=== PATIENT | female | born 1985 | race Caucasian/White ===

== ENCOUNTER → 2016-11-06 | Outpatient (CLI) | payer OTHER ==
[~2016-11-06] MED LIST: COLA100C5 PO; DIBU10OI TOP; MOTR200T44 PO; PRENTAB7 PO; TUMS500C PO; TYLE325T5 PO
== END ==
LOC: M LAB 10:03
PROVIDERS: ATTEND Nurse Practitioner Women's Health
DX: Z34.90 Encounter for supervision of normal pregnancy, unspecified, unspecified trimester (principal); Z36 Encounter for antenatal screening of mother; Z3A.00 Weeks of gestation of pregnancy not specified

== ENCOUNTER 2016-11-21 17:45 | Outpatient (CLI) | payer OTHER ==
[~2016-11-21] VITALS: Ht 165.1 cm; Wt 85.0 kg
[2016-11-21] MEDS ORDERED: PRENTAB7 PO (17:56)
[2016-11-21 18:07] VITALS: BP 145/80
[2016-11-21 18:34] LABS: MEAN CORPUSCULAR HEMOGLOBIN 31.4 pg (27.0-33.0); MEAN CORPUSCULAR HGB CONC 34.2 g/dl (32.0-36.5); MEAN CORPUSCULAR VOLUME 91.8 fl (80.0-96.0); RED CELL DISTRIBUTION WIDTH 13.1 % (11.5-14.5); WHITE BLOOD COUNT 11.6 K/mm3 (4.0-10.0)
--- NOTE | 2016-11-22 16:06 | HPE ---
DATE OF ADMISSION: 11/21/2016 This lady is a 31-year-old 3, para 2, LMP of 05/02/2016, estimated date of delivery (EDC) 02/06/2017 at 29 weeks gestation who fell 2 hours ago and called requesting guidance. She had no loss of fluid. No contractions. No loss of consciousness. No bleeding. Her labs are O+, HIV negative, hepatitis negative, RPR negative, rubella immune. Varicella immune. Pap normal. Urine negative. Gonorrhea and chlamydia negative. 1-hour glucose 108. CF declined. Quad screen declined. PHYSICAL EXAMINATION: On examination no acute distress. Symphysis fundus height is 30, vertex presenting, non irritable uterus. Category one strip. No vaginal loss or bleeding and no contractions. Her temperature is 97.9, pulse 109, respirations 18, blood pressure 145/80, hemoglobin 13.7, hematocrit 40.2 and platelets are 249. Betke-Kleihauer is pending and no urine was available. The rest of the examination unremarkable. She is normocephalic, atraumatic. Neck: Full range of motion. Pupils equal and reactive to light. No neck issues. Chest is clear bilaterally to bases. No wheezes or rhonchi. Distal pulses symmetric. No evidence of deep venous thrombosis (DVT), pulmonary embolism (PE) or superficial phlebitis. No CVA tenderness. Again, nontender uterus. Appropriate symphysis fundus height. No rashes, lesions or pruritus. No arthralgia, myalgia. No complaints of cough, wheezes, shortness of breath or dyspnea on exertion. No chest pain. No bleeding. Neuro complete. No incontinency or frequency. No nausea, vomiting, diarrhea, or constipation. No diabetic or cold issues. 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 SOCIAL HISTORY: She does not smoke, drink or abuse drugs and she has no domestic violence. SUMMARY: In summary we have a 29 weeker who fell on her abdomen with no consequences. Precautions were given and she was discharged undelivered to followup in the office at her interval appointment in November.
== END 2016-11-21 19:50 | disposition home or self-care (01) ==
LOC: M LDO 17:45
PROVIDERS: ATTEND Obstetrics & Gynecology
DX: O99.89 Other specified diseases and conditions complicating pregnancy, childbirth and the puerperium (principal); Z3A.29 29 weeks gestation of pregnancy; W19.XXXA Unspecified fall, initial encounter; X58.XXXA Exposure to other specified factors, initial encounter; Y93.9 Activity, unspecified; Y92.9 Unspecified place or not applicable; Y99.8 Other external cause status; M54.5 Low back pain; Z91.02 Food additives allergy status; Z91.018 Allergy to other foods

== ENCOUNTER 2017-02-03 10:41 | Inpatient (IN) | payer OTHER ==
[2017-02-03] VITALS (34 sets, daily range): BP systolic 112–153; BP diastolic 58–90
[~2017-02-03] VITALS: Ht 165.1 cm; Wt 95.4 kg
[~2017-02-03 10:41] MED LIST changes: -COLA100C5 PO; -DIBU10OI TOP; -MOTR200T44 PO; -TUMS500C PO; -TYLE325T5 PO
[2017-02-03] MEDS ORDERED: LACTATED RINGER'S 1000 ML IV STA (10:44)
[2017-02-03] MEDS ORDERED: TUMS500C PO (11:21)
[2017-02-03 11:50] LABS: MEAN CORPUSCULAR HEMOGLOBIN 30.6 pg (27.0-33.0); MEAN CORPUSCULAR HGB CONC 33.9 g/dl (32.0-36.5); MEAN CORPUSCULAR VOLUME 90.2 fl (80.0-96.0); RED CELL DISTRIBUTION WIDTH 14.3 % (11.5-14.5); WHITE BLOOD COUNT 17.9 10^3/uL (4.0-10.0)
[2017-02-03] MEDS: LR 1,000 ML IV SCH ×2 (15:50→18:44)
[2017-02-03] MEDS ORDERED: FENTANYL 2MCG/ML ROPIVACAINE 0.2% IN 0.9% NACL 200ML IVBAG As Ordered ONE (16:22)
[2017-02-03] MEDS ORDERED: ONDANSETRON 4MG/2ML VIAL (J2405) IV PRN (17:30)
[2017-02-03] MEDS ORDERED: REFRIGERATOR IV KEYS XX PRN (17:30)
[2017-02-03] MEDS ORDERED: diphenhydrAMINE INJ 50MG/ML VIAL (J1200) IV PRN (17:30)
[2017-02-03] MEDS ORDERED: EPIDURAL COMMENT XX SCH (17:30)
[2017-02-03] MEDS ORDERED: EPIDURAL/PCA KEYS XX PRN (17:30)
[2017-02-03] MEDS ORDERED: FENTANYL/ROPIVACAINE/NACL BAG 200 ML EPIDURAL SCH (17:30)
[2017-02-03] MEDS ORDERED: LACTATED RINGER'S 1000 ML IV PRN (17:30)
[2017-02-03] MEDS ORDERED: ePHEDrine SULFATE 25 MG/5 ML(5MG/ML) SYRINGE IV PRN (17:30)
[2017-02-03] MEDS ORDERED: NALOXONE INJ 0.4 MG/1 ML VIAL (J2310) IV PRN (17:30)
[2017-02-03] MEDS ORDERED: OXYTOCIN 30 UNITS IN 0.9% NaCl 500ML IV BAG (J2590) As Ordered ONE (19:08)
[2017-02-04] VITALS (11 sets, daily range): BP systolic 120–139; BP diastolic 56–83
[2017-02-04 02:24] LABS: CORD GAS ABE V -16.2; CORD GAS HCO3 V 13.1 MEQ/L; CORD GAS PCO2 V 42.8 mmHg; CORD GAS PH V 7.103 UNITS; CORD GAS PO2 V 34.6 mmHg; CORD GAS SBC V 12.2 MEQ/L; CORD GAS TCO2 V 14.4 MEQ/L
[2017-02-04] MEDS ORDERED: LR 1,000 ML IV SCH (02:26)
[2017-02-04 02:27] LABS: CORD GAS ABE A -15.3; CORD GAS HCO3 A 14.7 MEQ/L; CORD GAS O2 SAT A 53.8 %; CORD GAS PCO2 A 49.6 mmHg; CORD GAS PH A 7.089 UNITS; CORD GAS PO2 A 28.2 mmHg; CORD GAS SBC A 12.4 MEQ/L; CORD GAS TCO2 A 16.2 MEQ/L
[2017-02-04] MEDS ORDERED: OXYTOCIN DRIP 30 UNITS in APPROPRIATE DILUENT 1 EA IV SCH ×2 (02:30→02:49)
[2017-02-04] MEDS: LR 1,000 ML IV SCH (02:44)
[2017-02-04] MEDS ORDERED: ONDANSETRON 4MG/2ML VIAL (J2405) IV PRN (03:00)
[2017-02-04] MEDS ORDERED: MEASLES,MUMPS,RUBELLA VACCINE INJ (MMR-II) (90707) SC SCH (03:00)
[2017-02-04] MEDS ORDERED: DIBUCAINE 1% OINTMENT 30GM TOP PRN (03:00)
[2017-02-04] MEDS ORDERED: RHOGAM 300 MCG (1500 IU) INJ (J2790) IM SCH (03:00)
[2017-02-04] MEDS ORDERED: PROMETHAZINE 25 MG TAB PO PRN (03:00)
[2017-02-04] MEDS ORDERED: METHYLERGONOVINE MALEATE 0.2 MG/ML VIAL (J2210) IM PRN (03:00)
[2017-02-04] MEDS: IBUPROFEN 800 MG TAB PO PRN ×2 (04:24→17:45)
[2017-02-04] MEDS: PRENATAL VITAMINS CHEWABLE TABLET PO SCH (08:35)
[2017-02-04] MEDS: DOCUSATE SODIUM 100 MG CAP PO SCH ×2 (08:36→21:27)
[2017-02-04] MEDS: ACETAMINOPHEN 500 MG TAB PO PRN (21:38)
[2017-02-05 06:00] VITALS: BP 137/79
[2017-02-05] MEDS: IBUPROFEN 800 MG TAB PO PRN ×2 (07:30→15:41)
--- NOTE | 2017-02-05 07:58 | IPNPDOC ---
Progress Note Date of Service The patient was seen on 02/05/17 at 07:57. Progress Note PPD#1 s/p S: Pt doing well. Pain well controlled, lochia decreasing/minimal, voiding spontaneously, tolerating a regular diet, ambulating without difficulty. No f/c /n/v/HENRIQUEZ. Plans on breast feeding. O: Normotensive, nml HR, afebrile H: RRR no m/g/r L: CTA b/l no w/c/r/r Abd: soft, appropriately tender, and FF at U-1/fundus nontender Ext: no c/c/e A/P: Keerthi is a 31yo [id number] S/p uncomplicated after presenting with SROM at term, doing well on PPD#1. Hemodynamically stable, afebrile, good pain control. -Routine care -motrin and tylenol for pain -encourage breast feeding -will continue to monitor -likely discharge home tomorrow Dr. Leland Fernández ([facility])MD VS, I&O, 24H, [facility] Vital Signs/I&O Vital Signs Date Time Temp Pulse Resp B/P (MAP) Pulse Ox O2 Delivery O2 Flow Rate FiO2 02/05/17 06:00 98.4 78 18 137/79 (98) 02/04/17 05:00 97 Room Air LELAND FERNÁNDEZ MD Feb 05, 2017 07:58
[2017-02-05] MEDS: DOCUSATE SODIUM 100 MG CAP PO SCH ×2 (08:02→19:47)
[2017-02-05] MEDS: PRENATAL VITAMINS CHEWABLE TABLET PO SCH (08:02)
--- NOTE | 2017-02-05 08:18 | IPN ---
DATE: 02/05/2017 This lady has requested circumcision of the male . After discussing risks and benefits of the circumcision, medical and nonmedical indications, penile block and aftercare expressed understanding of the penile block and aftercare signed and witnessed the consent form. We await the medical clearance by the nuclear physicist.
[2017-02-05 09:51] VITALS: BP 127/73
[2017-02-05] MEDS: ACETAMINOPHEN 500 MG TAB PO PRN ×2 (10:40→19:47)
[2017-02-05 18:00] VITALS: BP 149/69
[2017-02-06] MEDS: IBUPROFEN 800 MG TAB PO PRN (05:27)
[2017-02-06 06:00] VITALS: BP 145/86
[2017-02-06] MEDS ORDERED: COLA100C5 PO (07:42)
[2017-02-06] MEDS ORDERED: MOTR200T44 PO (07:42)
[2017-02-06] MEDS ORDERED: DIBU10OI TOP (07:42)
[2017-02-06] MEDS ORDERED: TYLE325T5 PO (07:42)
[2017-02-06] MEDS: PRENATAL VITAMINS CHEWABLE TABLET PO SCH (08:25)
[2017-02-06] MEDS: DOCUSATE SODIUM 100 MG CAP PO SCH (08:25)
[2017-02-06] MEDS: ACETAMINOPHEN 500 MG TAB PO PRN (08:25)
--- NOTE | 2017-02-06 08:56 | DSES ---
DATE OF ADMISSION: 02/03/2017 DATE OF DISCHARGE: 31-year-old, 1, now para 1, admitted in active labor, spontaneous rupture of membranes at 39 and 4 weeks of gestation. She delivered a live male infant weighing 7 pounds 10 ounces (3450 grams). of 7 and 8 at one and five minutes respectively. Meconium staining was noted. She had an epidural in place, had a first-degree repaired. On discharge, we discussed phlebitis, cystitis, mastitis, endometritis and cellulitis, diet, exercise, pain management, perineal, breast and wound care. Planning on using condoms as method of control. Blood pressure 145/86, respirations 16, pulse 77, temperature is 98.1. Arterial gases 7.08, base excess -15.3, venous pH 7.10, base excess -16.2. Her hemoglobin was 14.7, hematocrit 43.3 and platelets were 255. The rest the examination is normal. She is normocephalic, atraumatic. Neck full range of motion. Pupils equal and reactive to light. Distal pulses symmetric. No evidence of deep venous thrombosis (DVT), pulmonary embolism (PE) or superficial phlebitis. Chest is clear bilaterally to bases. No wheezes or rhonchi. No costovertebral angle (CVA) tenderness. Uterus 2 below. Lochia is moderate. Perineum is healing. No rashes, lesions or pruritus. No arthralgia or myalgia. No complaints of cough, wheezes, shortness of breath or dyspnea on exertion. No chest pain. Not bleeding. Neuro complete. No incontinency, urgency or frequency. No nausea, vomiting, diarrhea or constipation. No diabetic issues. 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 She does not smoke, drink, abuse drugs. She is and there is no domestic violence. In summary, we have a term gestation delivered a live male infant discharged to followup in 6 weeks for checkup. All questions were answered.
== END 2017-02-06 14:55 | disposition home or self-care (01) | DRG 775 ==
LOC: M LDI 10:41 → M OBS 02-04 04:03
PROVIDERS: ADMIT Obstetrics & Gynecology; ATTEND Obstetrics & Gynecology
PROC: 10E0XZZ Delivery of Products of Conception, External Approach (ICD-10-PCS; principal; 2017-02-04)
PROC: 0HQ9XZZ Repair Perineum Skin, External Approach (ICD-10-PCS; 2017-02-04)
DX: O70.0 First degree perineal laceration during delivery (principal); Z3A.39 39 weeks gestation of pregnancy; Z37.0 Single live birth

== ENCOUNTER 2024-04-27 02:02 | Emergency (ER) | payer OTHER ==
[~2024-04-27] VITALS: Ht 165.1 cm; Wt 88.6 kg
[~2024-04-27 02:02] MED LIST changes: +COLA100C5 PO; +DIBU28OI2 TOP; +MOTR200T44 PO; +TUMS500C PO; +TYLE325T5 PO
[2024-04-27] MEDS ORDERED: diphenhydrAMINE 50MG/ML VIAL IV ONE (02:25)
[2024-04-27] MEDS: diphenhydrAMINE 50MG CAP PO ONE (02:30)
[2024-04-27] MEDS ORDERED: PRED20TA PO (06:24)
[2024-04-27] MEDS: predniSONE 20 MG TAB PO ONE (06:27)
[2024-04-27 06:37] VITALS: BP 127/83; TEMP 96.7; O2SAT 100
== END 2024-04-27 06:48 | disposition home or self-care (01) ==
LOC: M ED 02:02
DX: L50.9 Urticaria, unspecified (principal); Z91.018 Allergy to other foods; Z79.1 Long term (current) use of non-steroidal anti-inflammatories (NSAID); Z79.52 Long term (current) use of systemic steroids; Z79.810 Long term (current) use of selective estrogen receptor modulators (SERMs)
CPT/HCPCS: 99284; J7512

== ENCOUNTER → 2024-05-03 | Outpatient (CLI) | payer OTHER ==
[~2024-05-03] MED LIST changes: +PRED20TA PO
== END ==
LOC: M PLAIMG 13:18
PROVIDERS: ATTEND Student in an Organized Health Care Education/Training Program
DX: K76.0 Fatty (change of) liver, not elsewhere classified (principal); R74.8 Abnormal levels of other serum enzymes

== ENCOUNTER → 2024-12-03 | Outpatient (REF) | payer OTHER ==
[2024-12-03 18:12] LABS: BASO # 0.1 10^3/uL (0.0-0.2); BASO % 1.2 % (0.0-1.0); EOS # 0.1 10^3/uL (0.0-0.5); EOS % 1.4 % (0.0-3.0); LYMPH # 1.2 10^3/uL (1.5-5.0); LYMPH % 23.2 % (24.0-44.0); MONO # 0.3 10^3/uL (0.0-0.8); MONO % 6.1 % (2.0-8.0); NEUTROPHILS # 3.4 10^3/uL (1.5-8.5); NEUTROPHILS % 67.7 % (36.0-66.0); PLATELET COUNT, AUTOMATED 249 10^3/uL (150-450)
[2024-12-03 18:19] LABS: ERYTHROCYTE SEDIMENTATION RATE 12 mm/hr (0-20)
[2024-12-03 18:20] LABS: ALT/SGPT 16 U/L (7.0-40); AST/SGOT 20 U/L (<34); C REACTIVE PROTEIN QUANTITATIV < 0.50 MG/DL (<1.0); CALCIUM LEVEL 9.2 MG/DL (8.5-10.1); CARBON DIOXIDE LEVEL 28 MMOL/L (20-31); CHLORIDE LEVEL 102 MMOL/L (98-107); CREATININE FOR GFR 0.90 MG/DL (0.55-1.30); GLOMERULAR FILTRATION RATE 83.9 (>60); POTASSIUM SERUM 4.6 MMOL/L (3.5-5.1); SODIUM LEVEL 140 MMOL/L (136-145)
== END ==
LOC: M SFHCRHEU 13:45
PROVIDERS: ATTEND Internal Medicine Rheumatology
DX: R52 Pain, unspecified (principal); R22.0 Localized swelling, mass and lump, head; H04.123 Dry eye syndrome of bilateral lacrimal glands; R76.8 Other specified abnormal immunological findings in serum